=== PATIENT | male | born 1975 ===

== ENCOUNTER 2020-08-22 15:28 | Emergency (ER) | payer OTHER ==
[~2020-08-22] VITALS: Ht 182.9 cm; Wt 74.4 kg
[2020-08-22] MEDS ORDERED: SYNTHROID50 MCG PO (15:41)
[2020-08-22] MEDS ORDERED: ZYRTEC10 MG PO (18:04)
[2020-08-22] MEDS ORDERED: EQ EYE ALLERGY15 ML OP (18:04)
== END 2020-08-22 17:56 | disposition home or self-care (01) ==
LOC: ER 15:28
DX: H10.12 Acute atopic conjunctivitis, left eye (principal); H57.89 Other specified disorders of eye and adnexa